=== PATIENT | female | born 1985 | race Two or more races ===

== ENCOUNTER 2023-01-15 11:30 | Inpatient (IN) ==
[2023-01-15] MEDS ORDERED: ANCEF VIAL 1 GRAM IVP ONE (12:43)
[2023-01-15] MEDS ORDERED: LR 1,000 ML IV 1,000 ML IV ONE ×3 (12:43→15:42)
[2023-01-15 13:04] LABS: BASOPHILS # (AUTO) 0.1 X10^3/uL (0.0-0.1); BASOPHILS % (AUTO) 1.1 % (0.2-1.0); EOSINOPHILS # (AUTO) 0.1 x10^3/uL (0.0-0.2); HEMATOCRIT 28.7 % (36.0-47.0); HEMOGLOBIN 9.2 g/dL (12.0-16.0); LYMPHOCYTES # (AUTO) 1.3 X10^3/uL (1.3-2.9); LYMPHOCYTES % (AUTO) 21.5 % (21.0-51.0); MEAN CORPUSCULAR HEMOGLOBIN 24.6 pg (27.0-34.0); MEAN CORPUSCULAR HGB CONC 32.1 g/dL (33.0-35.0); MEAN CORPUSCULAR VOLUME 76.5 fL (80.0-100.0); MEAN PLATELET VOLUME 9.9 fL (7.4-11.0); MONOCYTES # (AUTO) 0.5 x10^3/uL (0.3-0.8); MONOCYTES % (AUTO) 8.1 % (0.0-13.0); NEUTROPHILS % (AUTO) 68.3 % (42.0-75.0); RED BLOOD COUNT 3.75 X10^6/uL (3.5-5.4); WHITE BLOOD COUNT 5.9 X10^3/uL (3.6-10.0)
[2023-01-15 13:12] LABS: BLOOD UREA NITROGEN 9 mg/dL (7-18); CALCIUM 8.6 mg/dL (8.5-10.1); CARBON DIOXIDE 20.2 mmol/L (21-32); CHLORIDE 105 mmol/L (98-107); CREATININE 0.59 mg/dL (0.55-1.02); SODIUM 135 mmol/L (136-145); eGFR NON BLACK RACES > 60 (>60)
[2023-01-15] MEDS ORDERED: DILAUDID INJ ONE (13:12)
[2023-01-15] MEDS ORDERED: MARCAINE SPINAL ONE (13:12)
[2023-01-15] MEDS ORDERED: XYLOCAINE 2 % (PLAIN) ONE (13:13)
[2023-01-15] MEDS ORDERED: EPHEDRINE SULFATE INJ ONE ×2 (13:42→14:41)
[2023-01-15] MEDS ORDERED: PITOCIN ONE ×2 (13:51→14:15)
[2023-01-15 13:54] LABS: BILIRUBIN,URINE NEGATIVE (NEGATIVE); BLOOD/HEMOGLOBIN,URINE NEGATIVE (NEGATIVE); GLUCOSE, URINE NEGATIVE (NEGATIVE); KETONES,URINE NEGATIVE (NEGATIVE); LEUKOCYTE ESTERASE ,URINE NEGATIVE (NEGATIVE); NITRITES,URINE NEGATIVE (NEGATIVE); PH,URINE 6.5 (5.0 - 8.0); PROTEIN,URINE 1+ (NEGATIVE); UROBILINOGEN,URINE 1+ (NORMAL)
[2023-01-15 14:00] LABS: APPEARANCE,URINE CLEAR (CLEAR); COLOR,URINE YELLOW (YELLOW)
[2023-01-15 14:01] LABS: BACTERIA,URINE TRACE /HPF (NEGATIVE); RBC,URINE NONE SEEN /HPF (0-3); SQUAMOUS EPITHELIAL CELL,UR RARE /HPF (NEGATIVE)
[2023-01-15] MEDS ORDERED: BACTROBAN TOPICAL OINT ONE (14:15)
[2023-01-15] MEDS ORDERED: D5 1/2 NS 1,000 ML 1,000 ML IV ONE (14:15)
[2023-01-15] MEDS ORDERED: REGLAN INJ 10 MG VIAL IVP PRN ×2 (14:31→14:44)
[2023-01-15] MEDS ORDERED: ZOFRAN INJ 4 MG VIAL IVP PRN ×3 (14:31→15:14)
[2023-01-15] MEDS ORDERED: BENADRYL INJ 50 MG VIAL IVP PRN ×2 (14:31→14:44)
[2023-01-15] MEDS ORDERED: BARHEMSYS INJ IVP PRN (14:31)
[2023-01-15] MEDS ORDERED: NARCAN INJ IVP PRN ×2 (14:44)
[2023-01-15] MEDS ORDERED: TORADOL 30 MG VIAL IVP PRN (14:44)
[2023-01-15] MEDS ORDERED: PERCOCET TAB 5/325 MG PO PRN ×2 (14:44→15:14)
[2023-01-15] MEDS ORDERED: MILK OF MAGNESIA PO PRN (15:14)
[2023-01-15 15:20] LABS: BASOPHILS % (AUTO) 0.7 % (0.2-1.0); EOSINOPHILS % (AUTO) 0.6 % (0.9-2.9); HEMATOCRIT 23.9 % (36.0-47.0); HEMOGLOBIN 7.7 g/dL (12.0-16.0); LYMPHOCYTES # (AUTO) 1.2 X10^3/uL (1.3-2.9); MEAN CORPUSCULAR HEMOGLOBIN 24.9 pg (27.0-34.0); MEAN CORPUSCULAR VOLUME 77.9 fL (80.0-100.0); MEAN PLATELET VOLUME 10.2 fL (7.4-11.0); MONOCYTES # (AUTO) 0.3 x10^3/uL (0.3-0.8); MONOCYTES % (AUTO) 5.1 % (0.0-13.0); NEUTROPHILS # (AUTO) 5.2 x10^3/uL (2.2-4.8); NEUTROPHILS % (AUTO) 76.6 % (42.0-75.0); RED BLOOD COUNT 3.07 X10^6/uL (3.5-5.4); RED CELL DISTRIBUTION WIDTH 18.4 % (11.6-16.5); WHITE BLOOD COUNT 6.8 X10^3/uL (3.6-10.0)
[2023-01-15] MEDS ORDERED: NS 100 ML IV 100 ML with VENOFER 400 MG IV SCH ×2 (17:00)
[2023-01-16 05:20] LABS: HEMATOCRIT 21.5 % (36.0-47.0)
[2023-01-16 05:25] LABS: HEMOGLOBIN 6.9 g/dL (12.0-16.0)
[2023-01-16] MEDS ORDERED: INFeD or DEXFERRUM 25 MG in NS 100 ML IV 100 ML IV NR (09:00)
[2023-01-16] MEDS: PRENATAL PLUS PO SCH (09:50)
[2023-01-16] MEDS: MOTRIN TAB 800 MG PO PRN ×2 (09:50→19:40)
[2023-01-16] MEDS ORDERED: INFeD or DEXFERRUM 975 MG in NS 500 ML IV 500 ML IV ONE (11:00)
[2023-01-17] MEDS: MOTRIN TAB 800 MG PO PRN (06:16)
[2023-01-17] MEDS: PRENATAL PLUS PO SCH (09:45)
[2023-01-17 11:10] VITALS: BP 99/57
== END 2023-01-17 10:35 | disposition home or self-care (01) | DRG 798 ==
LOC: LD 12:17 → MED/SURG 15:01
PROVIDERS: ADMIT Obstetrics & Gynecology Obstetrics; ATTEND Obstetrics & Gynecology Obstetrics